=== PATIENT | male | born 1995 | race Caucasian/White ===

== ENCOUNTER 2022-09-21 15:55 | Emergency (ER) | payer BC, SELFPAY ==
[2022-09-21 16:07] VITALS: BP 136/76; PULSE 76; RESP 16; TEMP 36.9; O2SAT 99
[2022-09-21 16:31] VITALS: BP 136/76; PULSE 76; RESP 16; TEMP 36.9; O2SAT 99
--- NOTE | 2022-09-21 16:35 | ED.URI ---
HPI - URI/Sore Throat General Chief Complaint: Upper Respiratory Infection Stated Complaint: cough of phlem Time Seen by Provider: 09/21/22 16:19 Source: patient Mode of arrival: ambulatory Limitations: no limitations History of Present Illness HPI Narrative: Patient presents today with a 10-14 day history of productive cough with yellow sputum, that is worse in the morning and at night. Denies any additional symptoms to include shortness of breath, congestion, rhinorrhea. He took 1 dose of Sudafed during the length of his cough without relief. He has been having difficulty sleeping due to cough. Related Data Allergies Allergy/AdvReac Type Severity Reaction Status Date / Time Sulfa (Sulfonamide Allergy Severe Swelling Verified 09/21/22 16:29 Antibiotics) of Lip/Tongue/Throat Review of Systems Review of Systems: CONSTITUTIONAL: Denies body aches, fever, chills, or sweats. EYES: Denies visual changes, redness, or discharge. ENT: Denies rhinorrhea, congestion, sore throat, or otalgia. CARDIOVASCULAR: Denies chest pain, palpitations, or edema. RESPIRATORY: Denies dyspnea.+ Cough GASTROINTESTINAL: Denies abdominal pain, nausea, vomiting, or diarrhea. GENITOURINARY: Denies dysuria or hematuria. SKIN: Denies rash, itching, or wounds. MUSCULOSKELETAL: Denies back pain, joint pain, or myalgia. NEUROLOGIC: Denies headache, numbness, tingling, or weakness. PSYCH: Denies depression or anxiety. [facility] Social History Social History (Updated 09/21/22 @ 16:37 by Rebeka Cortes, [facility], ) Smoking status: Current every day smoker Tobacco type: e-cigarettes/vaping Alcohol intake: current Comments At time of signature, I have reviewed and agree with nursing past medical, surgical, social and family history unless otherwise noted. Please see nursing chart for further information. There is no relevant family history pertinent to the presenting complaint Exam Narrative: GENERAL: Well-appearing, well-nourished, and in no acute distress. HEAD: Normocephalic, atraumatic. EYES: EOMI. No redness or drainage. Conjunctivae normal. ENT: Mucous membranes pink and moist. Nares mildly congested. No rhinorrhea. TMs normal bilaterally. Throat normal. Uvula midline. NECK: Normal AROM. Supple. No lymphadenopathy. CHEST: No respiratory distress. Clear to auscultation. HEART: Regular rate and rhythm. No murmur appreciated. Normal peripheral pulses. EXTREMITIES: Normal range of motion. No edema. SKIN: Warm, dry, no rash. Capillary refill normal. Normal skin turgor. NEURO: No focal deficits. Alert and oriented x3. Gait steady. PSYCH: Normal affect. No signs of depression or anxiety. Course Course Level of Care: Express Care Visit Vital Signs Vital signs: Vital Signs Temperature 98.5 F 09/21/22 16:07 Pulse Rate 76 09/21/22 16:07 Respiratory Rate 16 09/21/22 16:07 Blood Pressure 136/76 09/21/22 16:07 Pulse Oximetry 99 09/21/22 16:07 Oxygen Delivery Room Air 09/21/22 16:07 Temperature 98.5 F 09/21/22 16:31 Pulse Rate 76 09/21/22 16:31 Respiratory Rate 16 09/21/22 16:31 Blood Pressure 136/76 09/21/22 16:31 Pulse Oximetry 99 09/21/22 16:31 Oxygen Delivery Room Air 09/21/22 16:31 Reviewed. Pt has been instructed to follow up with his PCP regarding his elevated blood pressure today. MDM - URI/Sore Throat Differential Diagnosis Differential diagnosis: Likely upper respiratory infection, sinusitis, viral infection and other ( Bronchitis) Critical Care Time Critical Care Time Critical Care Time: No Discharge Plan Discharge Clinical Impression: Bronchitis Sinusitis Qualifiers: Sinusitis location: unspecified location Chronicity: acute Recurrence: non-recurrent Qualified Code(s): J01.90 - Acute sinusitis, unspecified Patient Disposition: Home, Self-Care Condition: Stable Instructions: Antibiotic Form, Sinusitis (ED), Acute Bronchitis (ED) Additional
== END 2022-09-21 16:48 | disposition home or self-care (01) ==
PROVIDERS: Emergency Provider Nurse Practitioner
DX: J40 Bronchitis, not specified as acute or chronic (principal); J01.90 Acute sinusitis, unspecified; F17.290 Nicotine dependence, other tobacco product, uncomplicated
CPT/HCPCS: 99213; G0463

== ENCOUNTER 2022-09-27 14:42 | Outpatient (CLI) | payer BC, SELFPAY ==
[2022-09-27 19:46] LABS: Alanine Aminotransferase 21 U/L (6-50); Albumin Level 4.7 g/dL (3.5-5.1); Alkaline Phosphatase 71 U/L (38-126); Anion Gap 12 mmol/L (8-16); Aspartate Amino Transferase 20 U/L (17-59); Bilirubin,Total 0.4 mg/dL (0.2-1.3); Blood Urea Nitrogen 13 mg/dL (9-20); Calcium 9.1 mg/dL (8.4-10.2); Carbon Dioxide 27 mmol/L (22-30); Chloride 102 mmol/L (98-107); Cholesterol 162 mg/dL (0-200); Estimated Glomerular Filt Rate > 60; Glucose 94 mg/dL (65-110); HDL Direct 40 mg/dL; Sodium 141 mmol/L (137-145); Triglycerides 98 mg/dL (<150)
[2022-09-27 19:58] LABS: LDL Cholesterol Direct 95 mg/dL
== END 2022-09-27 14:43 | disposition home or self-care (01) ==
LOC: ANHGOSHLAB 14:45
PROVIDERS: PCP Family Medicine; Visit Provider Family Medicine
DX: Z13.228 Encounter for screening for other metabolic disorders (principal); Z13.220 Encounter for screening for lipoid disorders
CPT/HCPCS: 36415; 80053; 80061

== ENCOUNTER 2023-12-12 11:36 | Emergency (ER) | payer OTHER, SELFPAY ==
--- NOTE | 2023-12-12 11:47 | ED.GENADULT ---
HPI - General Adult General Chief complaint: Upper Respiratory Infection Stated complaint: Right Eye/ Sinus Source: patient, RN notes reviewed and old records reviewed Mode of arrival: ambulatory Limitations: no limitations History of Present Illness HPI narrative: 28-year-old male patient presents to [facility] with complaint of sinus congestion, sinus pressure, cough for 3 months. Patient states did a virtual visit and was told to take [id number] medications. Patient states it is not improving. Patient states has thick green nasal discharge. Patient also complaining right eye redness, irritation, swelling that started yesterday. Patient states things got salt in his eye. Patient denies injury. Patient does wear contact lenses Related Data Allergies Allergy/AdvReac Type Severity Reaction Status Date / Time Sulfa (Sulfonamide Allergy Severe Swelling Verified 12/12/23 11:47 Antibiotics) of Lip/Tongue/Throat Review of Systems Constitutional: Constitutional: Reports no additional constitutional complaints, Denies body ache(s), Denies chills, Denies fatigue, Denies fever(s) and Reports headache(s) Eyes: Eyes: Denies blind spots, Denies blurry vision, Denies exophthalmos, Denies change in vision, Reports eye discharge, Reports irritation, Reports eye pain and Reports requires corrective lenses ENT: Reports system reviewed and no additional complaints, except as documented, Denies vertigo, Denies dizziness, Denies ear discharge, Denies otalgia, Reports facial pain, Reports headache(s), Reports nasal congestion, Reports nasal discharge, Reports sinus pain, Reports sinus pressure and Denies sore throat Cardiovascular: Cardiovascular: Reports no additional cardiovascular complaints, Denies chest pain, Denies chest pain at rest, Denies rapid heart rate and Denies dyspnea Respiratory: Respiratory: Reports no additional respiratory complaints, Denies chest congestion, Reports cough, Denies pain on inspiration, Denies pain with cough and Denies dyspnea Gastrointestinal: Gastrointestinal: Denies abdominal pain, Denies diarrhea, Denies nausea and Denies vomiting Integumentary/Breasts: Skin/Breast: Denies rash Neurologic: Reports system reviewed and no additional complaints, except as documented, Denies vertigo, Denies dizziness and Denies headache(s) Endocrine: Endocrine: Denies fatigue PMFSH Past Medical History Medical History ADHD Surgical History Surgical History History of appendectomy Social History Social History Smoking status: Current some day smoker (Vapes) Tobacco type: e-cigarettes/vaping Alcohol intake: current Drinks per week: 30 Substance use: never Lack of Transportation: No Lack of Food: Never True Current Housing: I Have Housing Concerned About Future Housing: No Difficulty Paying Gas/Electric Bills: No Difficulty Paying for Meds: No Currently Unemployed: No Education: Trade/Vocational Certificate Difficulty w/ Childcare or Family Care: No Comments At the time of my signature, I reviewed and agree with the nursing past medical, surgical, social, and family history. There is no relevant family history pertinent to the patient complaint. Exam Const: General: cooperative, healthy appearing, no acute distress and well nourished Nutritional Appearance: well nourished Orientation/consciousness: patient oriented x3 Limitations: no limitations HENMT: Head: normal to inspection and normocephalic Ears: external ears normal, TM's normal bilaterally, mastoids normal and Abnormal EAC present Face/Nose/Sinus: Normal nasal mucous membranes and turbinates present and Facial tenderness on exam of face and sinuses Face and sinus: normal facial exam and sinus tenderness maxillary Mouth: Yes Normal oral and palatal
[2023-12-12 11:55] VITALS: BP 125/83; PULSE 94; RESP 20; TEMP 36.9; O2SAT 99
== END 2023-12-12 12:20 | disposition home or self-care (01) ==
PROVIDERS: Emergency Provider Registered Nurse; PCP Family Medicine
DX: J01.90 Acute sinusitis, unspecified (principal); S05.01XA Injury of conjunctiva and corneal abrasion without foreign body, right eye, initial encounter; X58.XXXA Exposure to other specified factors, initial encounter; F17.290 Nicotine dependence, other tobacco product, uncomplicated
CPT/HCPCS: 99213; A9270; G0463

== ENCOUNTER 2024-07-09 12:37 | Outpatient (CLI) | payer OTHER, SELFPAY ==
[2024-07-09 13:36] LABS: Basophils Absolute Auto 0.1 K/mm3 (0.0-0.1); Basophils Percent Auto 0.8 % (0.2-1.2); Eosinophils Absolute Auto 0.5 K/mm3 (0-0.3); Eosinophils Percent Auto 6.4 % (0-4.4); Hematocrit 44.8 % (42.0-52.0); Hemoglobin 15.7 g/dL (14.0-18.0); Immature Granulocyte Absolute 0.02 K/mm3 (0.00-0.031); Immature Granulocyte Percent A 0.3 % (0-0.5); Lymphocytes Absolute Auto 2.47 K/mm3 (0.9-3.2); Lymphocytes Percent Auto 34.1 % (18.3-44.2); Mean Corpuscular Hemoglobin 30.5 pg (26-34); Mean Corpuscular Volume 87.2 fl (80-100); Mean Platelet Volume 10.2 fl (7.4-10.4); Monocytes Absolute Auto 0.8 K/mm3 (0.1-0.6); Monocytes Percent Auto 11.6 % (2.6-8.5); Neutrophils Absolute Auto 3.4 K/mm3 (1.3-6.7); Neutrophils Percent Auto 46.8 % (45.5-73.1); Platelet Count Result 274 k/mm3 (150-375); Red Blood Count 5.14 M/mm3 (4.6-6.20); Red Cell Distribution Width 12.5 % (11.5-14.5); White Blood Count 7.2 K/mm3 (4.5-10.0)
[2024-07-09 14:30] LABS: Alanine Aminotransferase 46 U/L (6-50); Albumin Level 4.5 g/dL (3.5-5.1); Alkaline Phosphatase 80 U/L (38-126); Anion Gap 9 mmol/L (4-12); Aspartate Amino Transferase 59 U/L (17-59); Bilirubin,Total 0.9 mg/dL (0.2-1.3); Blood Urea Nitrogen 13 mg/dL (9-20); Calcium 9.2 mg/dL (8.4-10.2); Carbon Dioxide 29 mmol/L (22-30); Chloride 99 mmol/L (98-107); Estimated Glomerular Filt Rate > 60; Glucose 96 mg/dL (65-110); Potassium 4.3 mmol/L (3.4-5.0); Sodium 137 mmol/L (137-145)
== END 2024-07-09 12:38 | disposition home or self-care (01) ==
LOC: ANHGOSHLAB 12:45
PROVIDERS: PCP Family Medicine; Visit Provider Family Medicine
DX: R53.83 Other fatigue (principal); Z13.228 Encounter for screening for other metabolic disorders
CPT/HCPCS: 36415; 80053; 85025

== ENCOUNTER 2024-07-09 12:53 | Outpatient (CLI) | payer OTHER, SELFPAY ==
--- NOTE | ~2024-07-09 | XR_ITS ---
XR lumbar spine min 4V 07/09/2024 13:08 Indication: Low back pain Procedure: 5 views lumbar spine Comparison: No prior studies for comparison. Findings: No fracture, subluxation or dislocation. Vertebral body heights are maintained. There is di sc narrowing at L5-S1. No evidence for spondylolisthesis. Sacral foramen are symmetric. Pedicles inta ct. Impression: 1: Mild lumbar spondylosis. Reviewed, dictated and finalized at location B. Impression: 1: Mild lumbar spondylosis.
== END 2024-07-09 12:54 ==
LOC: GOSHIMG 12:54
PROVIDERS: PCP Family Medicine; Visit Provider Family Medicine
DX: M47.896 Other spondylosis, lumbar region (principal)
CPT/HCPCS: 72110

== ENCOUNTER 2025-03-10 10:18 | Emergency (ER) | payer BC, SELFPAY ==
--- NOTE | 2025-03-10 10:28 | ED_ITS ---
HPI - General Adult General Chief complaint: Unspecified Stated complaint: Vomiting Blood/Chest Wall Pain Time Seen by Provider: 03/10/25 10:22 Source: patient Mode of arrival: ambulatory Limitations: no limitations History of Present Illness HPI narrative: 29 yo M presents with c/o SOB since yesterday. Today began nausea suddenly while having a BM. vomited once and states blood streaked . Went to work and noticed he is having chest pressure to center of chest with upper ABD pain. continues to have SOB with exertion. became sweaty and weak while at work. No URI symptoms. All systems reviewed and negative except as noted above. Related Data Allergies Allergy/AdvReac Type Severity Reaction Status Date / Time Sulfa (Sulfonamide Allergy Severe Swelling Verified 03/10/25 10:29 Antibiotics) of Lip/Tongue/Throat Review of Systems Review of Systems: CONSTITUTIONAL: Denies fever, chills. Reports sweats. EYES: Denies visual changes, redness, or discharge. ENT: Denies rhinorrhea, congestion, sore throat, or otalgia. CARDIOVASCULAR: reports chest pressure. Denies palpitations, or edema. RESPIRATORY: denies cough. Reports dyspnea. GASTROINTESTINAL: reports abdominal pain, nausea, vomiting. Denies diarrhea. GENITOURINARY: Denies dysuria or hematuria. SKIN: Denies rash or itching. MUSCULOSKELETAL: Denies back pain, joint pain, or myalgia. NEUROLOGIC: Denies headache, numbness, or weakness. PSYCHIATRIC: Denies anxiety or depression. All other systems reviewed are negative, except as documented in HPI. [facility] Past Medical History Medical History ADHD Surgical History Surgical History History of appendectomy Social History Social History Smoking status: Current some day smoker (Vapes) Tobacco type: e-cigarettes/vaping Alcohol intake: current Drinks per week: 30 Substance use: never Lack of Transportation: No Lack of Food: Never True Current Housing: I Have Housing Concerned About Future Housing: No Difficulty Paying Gas/Electric Bills: No Difficulty Paying for Meds: No Currently Unemployed: No Education: Trade/Vocational Certificate Difficulty w/ Childcare or Family Care: No Comments At time of signature, agree with nursing past medical, surgical, social and family history. There is no relevant family history pertinent to the presenting complaint. Exam Narrative: GENERAL: This is a well-nourished, well-developed patient, patient is pale HEAD: normocephalic, atraumatic. EYES: PERRL. Sclera clear/white. Vision is grossly intact. EARS: External ears normal NOSE: External nose normal NECK: Neck supple, non-tender without lymphadenopathy, masses or thyromegaly. CARDIOVASCULAR: Regular rate and rhythm without murmurs, gallops, or rubs. RESPIRATORY: Clear to auscultation. Breath sounds equal bilaterally. No wheezes, rales, or rhonchi. GASTROINTESTINAL: Abdomen soft,tender right upper quadrant and epigastric, nondistended. Bowel sounds are active. No hepato-splenomegaly, or palpable masses. No guarding. SKIN: warm, Dry, intact with no suspicious lesions or rash, good texture and turgor. NEURO: awake, alert, and oriented to person, place and time. There were no obvious focal neurologic abnormalities. EXTREMITIES: No joint tenderness, effusion, or edema noted. Course Course Level of Care: Express Care Visit Vital Signs Vital signs: Vital Signs Temperature 36.4 C L 03/10/25 10:29 Pulse Rate 74 03/10/25 10:29 Respiratory Rate 16 03/10/25 10:29 Blood Pressure 121/75 03/10/25 10:29 Pulse Oximetry 98 03/10/25 10:29 Oxygen Delivery Room Air 03/10/25 10:29 Temperature 36.4 C L 03/10/25 10:29 Pulse Rate 74 03/10/25 10:29 Respiratory Rate 16 03/10/25 10:29 Blood Pressure 121/75 03/10/25 10:29 Pulse Oximetry 98 03/10/25 10:29 Oxygen Delivery Room Air 03/10/25 10:29 reviewed Transfer Transfered to: [place] Transportation: Other ( private vehicle) Transfer rationale: transferring patient to ER for further evaluation chest pressure, dyspnea, epigastric pain. Accepting physician: Dr. Teresa Medical Decision Making MDM Narrative Medical decision making narrative: EKG HR68, no ischemic changes, incomplete RBBB, left posterior fascicular block Please be advised this is a medical document. It is intended for [id number] communication. It is written in medical language and may contain unfamiliar abbreviations or verbiage. Medical documents are intended to carry relevant information, facts as evident, and the clinical opinion of the practitioner at the time of the encounter. This report may have been done utilizing a voice recognition system. Attempts have been made to correct errors. However, there may be uncorrected grammatical, spelling, and recognition errors present. The file time of this note does not n ecessarily represent the time of service. Vital Signs Vital Signs: Vital Signs Temperature 36.4 C L 03/10/25 10:29 Pulse Rate 74 03/10/25 10:29 Respiratory Rate 16 03/10/25 10:29 Blood Pressure 121/75 03/10/25 10:29 Pulse Oximetry 98 03/10/25 10:29 Oxygen Delivery Room Air 03/10/25 10:29 Temperature 36.4 C L 03/10/25 10:29 Pulse Rate 74 03/10/25 10:29 Respiratory Rate 16 03/10/25 10:29 Blood Pressure 121/75 03/10/25 10:29 Pulse Oximetry 98 03/10/25 10:29 Oxygen Delivery Room Air 03/10/25 10:29 Discharge Plan Discharge Clinical Impression: Chest pain, Acute dyspnea, Acute epigastric pain Patient Disposition: Acute Care Hospital Condition: Stable Patient Language: Arabic Prescriptions: No Action meloxicam 15 mg tablet 15 mg PO DAILY Qty: 90 1RF escitalopram oxalate 10 mg tablet 10 mg PO DAILY Qty: 90 1RF dextroamphetamine-amphetamine [Adderall XR] 25 mg capsule,extended release 24hr 25 mg PO DAILY Qty: 30 0RF cyclobenzaprine 10 mg tablet 10 mg PO TID PRN (Reason: muscle spasm) Qty: 30 0RF Follow-up/Referrals: Teo,Matias Harrell DO [Primary Care Provider] - Time of Disposition: 10:43
[2025-03-10 10:29] VITALS: BP 121/75; PULSE 74; RESP 16; TEMP 36.4; O2SAT 98
--- NOTE | 2025-03-10 10:33 | ECG_ITS ---
Test Date: 2025-03-10 10:44:36 Measurements Intervals [place] Rate: 68 P: 145 ID: 148 QRS: 145 QRSD: 96 T: 146 QT: 364 QTc: 387 Interpretive Statements SINUS RHYTHM POSSIBLE LEFT ATRIAL ENLARGEMENT INCOMPLETE RIGHT BUNDLE BRANCH BLOCK LEFT POSTERIOR FASCICULAR BLOCK BORDERLINE T WAVE ABNORMALITY- HIGH LATERAL LEADS BASELINE ARTIFACT- I, II, III, AVR, AVL, AVF ABNORMAL ECG No previous ECG available for comparison Electronically Signed On 03-10-2025 10:42:23 CDT by Luis Enrique Eng D.O.
== END 2025-03-10 10:52 | disposition short-term general hospital (02) ==
PROVIDERS: Emergency Provider Nurse Practitioner Family; PCP Family Medicine
DX: R07.9 Chest pain, unspecified (principal); R06.00 Dyspnea, unspecified; R10.13 Epigastric pain; I45.10 Unspecified right bundle-branch block; I44.5 Left posterior fascicular block; F90.9 Attention-deficit hyperactivity disorder, unspecified type; F17.290 Nicotine dependence, other tobacco product, uncomplicated
CPT/HCPCS: 93005; 99213; G0463

== ENCOUNTER 2025-03-10 11:06 | Emergency (ER) | payer BC, SELFPAY ==
--- NOTE | ~2025-03-10 | CT_ITS ---
EXAMINATION: CT abdomen pelvis w con DATE: 03/10/2025 12:49 INDICATION: Abdominal pain and blood streaked vomiting TECHNIQUE: Computed tomography (CT) of the abdomen and pelvis was performed with 100 mL Omnipaque-350 intravenous contrast. Automated exposure control and iterative reconstruction technique were employe d. The dose-length product was 739.94 mGy-cm. COMPARISON: None FINDINGS: Lung bases are clear. Heart size is normal. No pericardial or pleural effusion. Liver, gallbladder, s pleen, pancreas, bilateral adrenal glands and kidneys are normal. Postoperative change of prior appen dectomy with surgical clips at the tip the cecum. Bowels are otherwise unremarkable with no obstructi on. Bladder is normal. No free intraperitoneal gas or fluid. No pathologically enlarged abdominal or pelvic lymphadenopathy. Bilateral hypoplastic riblets at L1 with 12 more cephalad paired rib bearing thoracic vertebra on chest radiograph. 4 more caudal nonrib-bearing lumbar segments L2-L5. IMPRESSION: 1. No acute intra-abdominal/pelvic process. Reviewed, dictated and finalized at location A.
--- NOTE | ~2025-03-10 | XR_ITS ---
Clinical Indication: Hemoptysis PA and lateral views of the chest: Comparison: Pain none Findings: The lungs are clear, without evidence of focal consolidation or pleural effusion. Cardiome diastinal silhouette is within normal limits. Bones and soft tissues are unremarkable. Impression: Normal chest. Reviewed, dictated and finalized at [facility]. Impression: Normal chest.
[2025-03-10 11:11] VITALS: BP 134/92; PULSE 75; RESP 13; TEMP 36.4; O2SAT 98
--- NOTE | 2025-03-10 11:11 | ECG_ITS ---
Test Date: 2025-03-10 10:42:46 Measurements Intervals [place] Rate: 72 P: 143 SC: 152 QRS: 146 QRSD: 94 T: 134 QT: 357 QTc: 392 Interpretive Statements SINUS RHYTHM POSSIBLE LEFT ATRIAL ENLARGEMENT INCOMPLETE RIGHT BUNDLE BRANCH BLOCK LEFT POSTERIOR FASCICULAR BLOCK BORDERLINE T WAVE ABNORMALITY- HIGH LATERAL LEADS ABNORMAL ECG No previous ECG available for comparison Electronically Signed On 03-10-2025 11:39:22 CDT by Luis Enrique Eng D.O.
--- NOTE | 2025-03-10 11:22 | ECG_ITS ---
Test Date: 2025-03-10 11:22:27 Measurements Intervals [place] Rate: 74 P: 47 UT: 154 QRS: 70 QRSD: 93 T: 30 QT: 368 QTc: 410 Interpretive Statements SINUS RHYTHM WITH SINUS ARRHYTHMIA MINIMAL Q WAVES- INFERIOR LEADS BASELINE ARTIFACT- I, III, AVR, AVL, AVF BORDERLINE ECG Compared to ECG 03/10/2025 10:44:36 NO SIGNIFICANT CHANGE Electronically Signed On 03-10-2025 14:45:09 CDT by Luis Enrique Eng D.O.
[2025-03-10] MEDS: ASPIRIN 81 MG CHEWABLE TABLET 324 MG PO (11:23)
[2025-03-10 11:28] LABS: Basophils Absolute Auto 0.1 K/mm3 (0.0-0.1); Basophils Percent Auto 0.7 % (0.2-1.2); Eosinophils Absolute Auto 0.4 K/mm3 (0-0.3); Eosinophils Percent Auto 5.9 % (0-4.4); Hematocrit 44.2 % (42.0-52.0); Hemoglobin 15.5 g/dL (14.0-18.0); Immature Granulocyte Absolute 0.03 K/mm3 (0.00-0.031); Immature Granulocyte Percent A 0.4 % (0-0.5); Lymphocytes Absolute Auto 2.16 K/mm3 (0.9-3.2); Lymphocytes Percent Auto 31.9 % (18.3-44.2); Mean Corpuscular HGB Conc 35.1 g/dl (32-36); Mean Corpuscular Hemoglobin 29.6 pg (26-34); Mean Corpuscular Volume 84.5 fl (80-100); Monocytes Absolute Auto 0.9 K/mm3 (0.1-0.6); Monocytes Percent Auto 13.4 % (2.6-8.5); Neutrophils Absolute Auto 3.2 K/mm3 (1.3-6.7); Neutrophils Percent Auto 47.7 % (45.5-73.1); Platelet Count Result 266 k/mm3 (150-375); Red Blood Count 5.23 M/mm3 (4.6-6.20); Red Cell Distribution Width 12.7 % (11.5-14.5); White Blood Count 6.8 K/mm3 (4.5-10.0)
[2025-03-10 11:40] LABS: Alanine Aminotransferase 34 U/L (6-50); Albumin Level 4.8 g/dL (3.5-5.1); Alkaline Phosphatase 85 U/L (38-126); Anion Gap 11 mmol/L (4-12); Aspartate Amino Transferase 31 U/L (17-59); Bilirubin,Total 0.7 mg/dL (0.2-1.3); Blood Urea Nitrogen 17 mg/dL (9-20); Carbon Dioxide 26 mmol/L (22-30); Chloride 102 mmol/L (98-107); Estimated CRCL calculation 102 ml/min; Estimated Glomerular Filt Rate > 60; Glucose 102 mg/dL (65-110); Lipase 84 U/L (23-300); Potassium 4.2 mmol/L (3.4-5.0); Sodium 139 mmol/L (137-145)
[2025-03-10 11:44] LABS: INR 0.9; Prothrombin Time 13.1 Seconds (11.1-14.7)
[2025-03-10 11:45] LABS: Partial Thromboplastin Time 32.4 Seconds (22.3-36.8)
[2025-03-10 11:52] LABS: Troponin I < 0.012 ng/mL (0.000-0.034)
--- NOTE | 2025-03-10 12:57 | ED_ITS ---
HPI - Chest Pain General Chief Complaint: Chest Pain Stated Complaint: CP Time Seen by Provider: 03/10/25 12:02 History of Present Illness HPI narrative: 29-year-old male with history of reflux disease presenting to the emergency room with chief complaint of epigastric abdominal pain, radiating into his chest associated with GERD like symptoms. He states he felt nauseous and retching several times at work followed by 1 episode of emesis with streaking blood. No continued retching or nausea/vomiting. No history of gastritis, esophagitis, peptic ulcer disease to his knowledge. Does not drink significantly but does have a strong smoking history. He states he has been feeling occasionally short of breath after smoking. Denies any trauma or injury. No history of EGD or endoscopy. He was otherwise in his normal state of health. Denies any dark tarry stools or blood red blood per rectum. No lower abdominal pain. Abdominal surgical history includes appendectomy. Related Data Allergies Allergy/AdvReac Type Severity Reaction Status Date / Time Sulfa (Sulfonamide Allergy Severe Swelling Verified 03/10/25 11:20 Antibiotics) of Lip/Tongue/Throat Review of Systems 2 Review of Systems: As reviewed above in HPI [facility] Past Medical History Medical History ADHD Surgical History Surgical History History of appendectomy Social History Social History Smoking status: Current some day smoker (Vapes) Tobacco type: e-cigarettes/vaping Alcohol intake: current Drinks per week: 30 Substance use: never Lack of Transportation: No Lack of Food: Never True Current Housing: I Have Housing Concerned About Future Housing: No Difficulty Paying Gas/Electric Bills: No Difficulty Paying for Meds: No Currently Unemployed: No Education: Trade/Vocational Certificate Difficulty w/ Childcare or Family Care: No Exam 2 Narrative: GENERAL: [Well-appearing, well-nourished, and in no acute distress.] HEAD: [Normocephalic, atraumatic.] EYES: [PERRLA and EOMI.] ENT: Nares clear, no rhinorrhea or epistaxis. Mucous membranes moist. NECK: Supple. CHEST: [Clear to auscultation. No respiratory distress.] HEART: [Regular rate and rhythm]. No murmur heard. [Normal peripheral pulses.] ABDOMEN: [Soft, nondistended], [nontender], [No rigidity or guarding] EXTREMITIES: Normal range of motion. [No edema.] SKIN: Warm, dry, no rash. NEURO: [No focal deficits]. Alert and oriented [x3.] PSYCH: [Normal mood and affect.] Course Vital Signs Vital signs: Vital Signs Temperature 36.4 C 03/10/25 11:11 Pulse Rate 75 03/10/25 11:11 Respiratory Rate 13 03/10/25 11:11 Blood Pressure 134/92 H 03/10/25 11:11 Pulse Oximetry 98 03/10/25 11:11 Oxygen Delivery Room Air 03/10/25 11:11 Temperature 36.4 C 03/10/25 11:11 Pulse Rate 75 03/10/25 11:11 Respiratory Rate 13 03/10/25 11:11 Blood Pressure 134/92 H 03/10/25 11:11 Pulse Oximetry 98 03/10/25 11:11 Oxygen Delivery Room Air 03/10/25 11:11 MDM - Chest Pain MDM Narrative Medical decision making narrative: 29-year-old male presenting with epigastric abdominal pain radiating into his chest associated grade leg symptoms. He states he had been retching in nauseousness at work today several times followed by 1 episode of blood-streaked emesis without any recurrence. No upper chest discomfort or shortness of breath at this time. He has normal vital signs and unremarkable physical examination with clear breath sounds, strong symmetric pulses throughout, nontender nondistended abdomen. Suspicion presently given his history of reflux disease that he states has been dealing with for ?some time? is that he had potentially some erosive process such as gastritis versus esophagitis versus Jessi-Yip tear causing his brief blood-streaked emesis. Peptic ulcer disease or antral ulcer also possible. He has a soft nontender abdomen with normal vital signs. Suspicion for chest pathology such as pneumonia, necrotizing mass, lung cancer, esophageal cancer, ACS or very unlikely. Cardiac workup was ordered including CBC, CMP, lipase, troponin, EKG and chest x-ray. A CT abdomen pelvis with contrast was obtained and he was given Pepcid and Maalox for symptom control and re-evaluated after being placed on cafeteria monitor. Workup shows no leukocytosis or anemia. Normal platelet count. Normal coagulation panel. Normal electrolytes, normal renal and hepatic function panel. Normal glucose. Negative lipase, negative troponin. Chest x-ray without any acute findings. CT shows no acute intra-abdominal or pelvic process. Patient is safe and stable for discharge home at this time will be started on Protonix and encouraged to follow-up with his primary care provider and referred to GI doctor. Patient's questions were answered he was safe for discharge at this time. Medical Records Data Attestation: I reviewed the patient's medical records. Lab Data Attestation: I reviewed the patient's lab results. 03/10/25 11:22 03/10/25 11:22 Labs: Lab Results 03/10/25 Range/Units 11:22 WBC 6.8 (4.5-10.0) K/mm3 RBC 5.23 (4.6-6.20) M/mm3 Hgb 15.5 (14.0-18.0) g/dL Hct 44.2 (42.0-52.0) % MCV 84.5 (80-100) fl MCH 29.6 (26-34) pg MCHC 35.1 (32-36) g/dl RDW 12.7 (11.5-14.5) % Plt Count 266 (150-375) k/mm3 MPV 10.0 (7.4-10.4) fl Immature Gran % (Auto) 0.4 (0-0.5) % Neut % (Auto) 47.7 (45.5-73.1) % Lymph % (Auto) 31.9 (18.3-44.2) % Wilcox % (Auto) 13.4 H (2.6-8.5) % Eos % (Auto) 5.9 H (0-4.4) % Baso % (Auto) 0.7 (0.2-1.2) % Lymph # (Auto) 2.16 (0.9-3.2) K/mm3 Wilcox # (Auto) 0.9 H (0.1-0.6) K/mm3 Eos # (Auto) 0.4 H (0-0.3) K/mm3 Baso # (Auto) 0.1 (0.0-0.1) K/mm3 Abs Immat Gran (auto) 0.03 (0.00-0.031) K/mm3 Absolute Neuts (auto) 3.2 (1.3-6.7) K/mm3 Absolute Nucleated RBC 0.000 (0.0-0.012) K/mm3 Nucleated RBC % 0.0 (0.0-0.2) % PT 13.1 (11.1-14.7) Seconds INR 0.9 APTT 32.4 (22.3-36.8) Seconds Sodium 139 (137-145) mmol/L Potassium 4.2 (3.4-5.0) mmol/L Chloride 102 (98-107) mmol/L Carbon Dioxide 26 (22-30) mmol/L Anion Gap 11 (4-12) mmol/L BUN 17 (9-20) mg/dL Creatinine 1.12 (0.7-1.3) mg/dL Estim Creat Clear Calc 102 ml/min Estimated GFR > 60 (59 - ) Glucose 102 (65-110) mg/dL Calcium 9.0 (8.4-10.2) mg/dL Total Bilirubin 0.7 (0.2-1.3) mg/dL AST 31 (17-59) U/L ALT 34 (6-50) U/L Alkaline Phosphatase 85 (38-126) U/L Troponin I < 0.012 (0.000-0.034) ng/mL Total Protein 8.0 (6.3-8.2) g/dL Albumin 4.8 (3.5-5.1) g/dL Lipase 84 (23-300) U/L Imaging Data Attestation: I personally reviewed and interpreted this imaging study as follows: My impression: Impressions Chest X-Ray 03/10/25 11:49 Impression: Normal chest. Abdomen/Pelvis CT 03/10/25 12:50 IMPRESSION: 1. No acute intra-abdominal/pelvic process. ECG Data EKG #1: Attestation: I personally reviewed and interpreted this ECG as follows: ECG completion date: 03/10/25 ECG completion time: 10:42 Prior ECG tracings: not available for review Interpretation: No ST segment elevations, depressions. Appears sinus rhythm with a QTC of 392, NJ interval 152, QRS 94. No significant interval change compared to prior. Final interpretation sinus rhythm. Discharge Plan Discharge Clinical Impression: Acid reflux disease, Chest pain, Chest pain due to GERD Patient Disposition: Home Condition: Stable Instructions: Antibiotic Form, Gastritis (DC), GERD (Gastroesophageal Reflux Disease) in Children (ED), Diet for Stomach Ulcers and Gastritis (ED) Additional Instructions: Your cardiac workup was negative, your CT scan shows no acute abnormalities. Her symptoms very consistent with longstanding GERD causing the reflux symptoms and burning with chest pain. We will start you on Protonix and you are encouraged to follow-up with primary care provider but we will also refer you to a GI specialist further evaluation on outpatient basis nonemergent. Return with any new or worsening concerns at any time. Patient Language: Greek Prescriptions: New pantoprazole [Protonix] 20 mg tablet,delayed release (DR/EC) 20 mg PO HS 28 Days Qty: 28 0RF ondansetron 4 mg tablet,disintegrating 4 mg PO Q8H PRN (Reason: nausea and vomiting) Qty: 10 0RF No Action meloxicam 15 mg tablet 15 mg PO DAILY Qty: 90 1RF escitalopram oxalate 10 mg tablet 10 mg PO DAILY Qty: 90 1RF dextroamphetamine-amphetamine [Adderall XR] 25 mg capsule,extended release 24hr 25 mg PO DAILY Qty: 30 0RF cyclobenzaprine 10 mg tablet 10 mg PO TID PRN (Reason: muscle spasm) Qty: 30 0RF Follow-up/Referrals: Eros Macario MD [Physician] - 2 Weeks (reflux, chest pain, Jessi paige?) UNKNOWN,DOCTOR [Primary Care Provider] - Time of Disposition: 13:32
--- OUTSIDE RECORDS SUMMARY | 2025-03-10 13:01 | XMS_ITS | Clinical Summary ---
Author Organization [facility] Address [address] [place] [address] Care Team Providers Care Second Steward Name Role Phone Unavailable Primary Care Provider Unavailabl e Social History Tobacco Use Types Packs/Day Years Used Date Smoking Tobacco: Never Assessed Sex and Gender Information Value Date Recorded Sex Assigned at Not on file Legal Sex Male 12:27 PM CDT Gender Identity Not on file Sexual Orientation Not on file Plan of Treatment Upcoming Encounters Date Type Department Care Team (Late st Contact Info) Description 03/31/2025 9:40 AM CDT Office Visit [facility] Family Medicine - [place] [address] [facility] [address] [place] [phone] Carolina Leos MD [address] [place] [address] Health Maintenance Due Date Last Done Comments Annual Physical 1996 Hepatitis C 2011 DTaP, Tdap and Td Vaccines ( 1 - Tdap) 2012 Hepatitis B Vaccines (1 of 3 - 19+ 3-dose series) 2012 COVID-19 Vaccine ( - 2023-2 5 season) 2024 PHQ-2 (Physician [place]) 11/18/2024 HPV Vaccines Aged Out No longer eligi ble based on patient's age to complete this topic Meningococcal B Vaccine Aged Out No l onger eligible based on patient's age to complete this topic Meningococcal Vaccine Aged Out No tay kristine eligible based on patient's age to complete this topic Pneumococcal Vaccine: Pediat rics (0 to 5 Years) and At-Risk Patients (6 to 49 Years) Aged Out No longer eligible b ased on patient's age to complete this topic RSV Immunizations Under 20 Months Aged Out No longer eligible based on patient's age to complete this topic Insurance [facility]
[2025-03-10] MEDS: FAMOTIDINE 20 MG/2 ML VIAL IV PUSH (13:34)
[2025-03-10] MEDS: MAG HYDROX/AL HYDROX/SIMETH 30 ML UDC PO (13:34)
[2025-03-10 13:36] VITALS: BP 127/82; PULSE 60; RESP 13; TEMP 36.6; O2SAT 97
--- OUTSIDE RECORDS SUMMARY | 2025-03-10 14:00 | XMS_ITS | Clinical Summary ---
Author Organization [facility] Address [address] [place] [address] Care Team Providers Care Supervisor [place] Name Role Phone Unavailable Primary Care Provider [...] Description 03/31/2025 9:40 AM CDT Office Visit [facility] Family Medicine - [place] [address] [facility] [address] [place] [phone] Carolina Leos MD [address] [place] [address] Health Maintenance Due Date Last Done Comments Annual Physical 1996 Hepatitis C 2011 DTaP, Tdap and Td Vaccines ( 1 - Tdap) 2012 Hepatitis B Vaccines (1 of 3 - 19+ 3-dose series) 2012 COVID-19 Vaccine ( - 2023-2 5 season) 2024 PHQ-2 (Physician [place]) 11/18/2024 HPV Vaccines Aged Out No longer [...] patient's age to complete this topic Insurance [facility]
== END 2025-03-10 13:55 | disposition home or self-care (01) ==
PROVIDERS: Emergency Medicine; Emergency Provider Student in an Organized Health Care Education/Training Program
DX: K21.9 Gastro-esophageal reflux disease without esophagitis (principal); R07.89 Other chest pain; F90.9 Attention-deficit hyperactivity disorder, unspecified type
CPT/HCPCS: 36415; 71046; 74177; 80053; 83690; 84484; 85025; 85610; 85730; 93005; 96374; 99284; A9270; Q9967

== ENCOUNTER 2025-04-17 14:27 | Emergency (ER) | payer OTHER, SELFPAY ==
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
[2025-04-17 14:27] VITALS: BP 123/72; PULSE 89; RESP 20; TEMP 36.7; O2SAT 97
[2025-04-17] MEDS: KETOROLAC (*BKC) 60 MG/2 ML VIAL IM (15:14)
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
[2025-04-17 16:42] VITALS: BP 106/67; PULSE 80; RESP 20; TEMP 36.8; O2SAT 99
== END 2025-04-17 16:42 | disposition home or self-care (01) ==
PROVIDERS: Emergency Provider Emergency Medicine; PCP Internal Medicine
DX: S16.1XXA Strain of muscle, fascia and tendon at neck level, initial encounter (principal); F17.290 Nicotine dependence, other tobacco product, uncomplicated; V49.40XA Driver injured in collision with unspecified motor vehicles in traffic accident, initial encounter
CPT/HCPCS: 72125; 96372; 99284; J1885; L0150

== ENCOUNTER 2025-05-19 06:40 | Emergency (ER) | payer BC, SELFPAY ==
[2025-05-19 06:40] VITALS: O2SAT 99
[2025-05-19 06:43] VITALS: BP 121/78; PULSE 100; RESP 15; TEMP 37.6; O2SAT 98
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
--- OUTSIDE RECORDS SUMMARY | 2025-05-19 06:44 | XMS_ITS | Encounter Summary ---
Author Organization [facility] Address [facility] [place] [address] Care Team Providers Care Mill Laborer Name Role Phone Carolina Schuster MD Primary Care Provider + Reason for Visit * Reason Onset Date Comments Refill Request 05/18/2025 Encounter Details Date Type Department Care Team (Late st Contact Info) Description 05/18/2025 Telephone [facility] Medical Group Family Medicine [facility] [address] [facility] [address] [place] [phone] Carolina Schuster MD [address] [place] [phone] Refill Request Social History Tobacco Use Types Packs/Day Years Used Date Smoking Tobacco: Every Day Cigarettes 0.5 19.5 Started: 2005 Passive Smoke Exposure: Past Smokeless Tobacco: Never Alcohol Use Standard Drinks/Week Comments Yes 40 (1 standard drink = 0.6 oz pu re alcohol) socially PHQ-2 Answer Date Recorded Patient Health Questionnaire-2 Score 4 03/31/2025 Sex and Gender Information Value Date Recorded Sex Assigned at Not on file Legal Sex Male 12:27 PM CDT Gender Identity Not on file Sexual Orientation Not on file documented as of this encounter Progress Notes * Colleen Araiza MA - 05/18/2025 4:04 PM CDT Medication refill request for: Last visit with CAROLINA SCHUSTER in FAMILY PRACTICE was on: 03/31/[address] [facility] Next visit with CAROLINA SCHUSTER in FAMILY PRACTICE is on: 06/28/[address] [facility] Last fill: 03/31/25 CSA and UDS are up to date Medications - Current, Listed Continuously[1] [1] Current Outpatient Medications: amphetamine-dextroamphetamine XR (ADDERALL XR) 25 MG 24 hr capsule, Take 1 capsule (25 mg total) bymouth every morning., Disp: 30 capsule, Rfl: 0 escitalopram (LEXAPRO) 20 MG tablet, Take 1 tablet (20 mg total) by mouth daily., Disp: 90 tablet, Rfl: 3 meloxicam (MOBIC) 15 MG tablet, Take 1 tablet (15 mg total) by mouth daily., Disp: 90 tablet, Rfl: 3 * Maddi Borrego - 05/18/2025 3:22 PM CDT Refill request received from Patient Medication: amphetamine-dextroamphetamine XR (ADDERALL XR) 25 MG 24 hr capsule cyclobenzaprine (FLEXERIL) 10 MG tablet [[id number]] ENDED Pharmacy: [facility]/pharmacy #[id number] - [address] Last visit with CAROLINA SCHUSTER in FAMILY PRACTICE was on: 03/31/[address] [facility] Future Appointments Date Time Provider Department Center 06/28/2025 1:00 PM Carolina Schuster MD [id number] documented in this encounter Plan of Treatment Upcoming Encounters Date Type Department Care Team (Late st Contact Info) Description 06/28/2025 1:00 PM CDT Office Visit [facility] Family Medicine - [place] [address] [place] [phone] Carolina Schuster MD [address] [place] [address] documented as of this encounter Visit Diagnoses Not on filedocumented in this encounter Additional Health Concerns Assessment Noted Time PHQ-9 Depression Total Score: 15 025 9:47 AM CDT documented as of this encounter Care Teams Mill Laborer Relationship Specialty Start Date End Date Carolina Schuster MD [address] [facility] [address] [place] [id number] PCP - General FAMILY PRACTICE 03/31/25 documented as of this encounter
[2025-05-19] MEDS: IBUPROFEN 600 MG TABLET PO (06:49)
--- NOTE | 2025-05-19 07:00 | ED.URI ---
HPI - URI/Sore Throat General Chief Complaint: Upper Respiratory Infection <Gui West MD - Last Filed: 05/19/25 07:02> Stated Complaint: Fever <Gui West MD - Last Filed: 05/19/25 07:02> Time Seen by Provider: 05/19/25 07:00 <Gui West MD - Last Filed: 05/19/25 07:02> Source: patient <Gui West MD - Last Filed: 05/19/25 07:02> Mode of arrival: ambulatory <Gui West MD - Last Filed: 05/19/25 07:02> Limitations: no limitations <Gui West MD - Last Filed: 05/19/25 07:02> History of Present Illness HPI Narrative: This is a 29-year-old male with no significant past medical history that presents with a 2 day history of nasal congestion fever and sore throat muffled voice with some no chest pain no shortness of breath no audible wheezing nausea vomiting no abdominal pain or no diarrhea constipation. <Gui West MD - Last Filed: 05/19/25 07:02> MD elicited complaint: fever, sore throat and nasal congestion <Gui West MD - Last Filed: 05/19/25 07:02> Onset (ago): day(s) <Gui West MD - Last Filed: 05/19/25 07:02> Consistency: constant <Gui West MD - Last Filed: 05/19/25 07:02> Severity: moderate <Gui West MD - Last Filed: 05/19/25 07:02> Description of mucous: clear <Gui West MD - Last Filed: 05/19/25 07:02> Related Data Allergies/Adverse Reactions: Allergies Allergy/AdvReac Type Severity Reaction Status Date / Time Sulfa (Sulfonamide Allergy Severe Swelling Verified 04/17/25 14:49 Antibiotics) of Lip/Tongue/Throat <MD Kennedy Alberts Last Filed: 05/19/25 07:02> Review of Systems Review of Systems: All systems reviewed & are unremarkable except as noted in HPI and below <Gui West MD - Last Filed: 05/19/25 07:02> PMFSH Past Medical History Medical History: Medical History ADHD <Gui West MD - Last Filed: 05/19/25 07:02> Surgical History Surgical History: Surgical History History of appendectomy <Gui West MD - Last Filed: 05/19/25 07:02> Social History Social History: Social History Smoking status: Current some day smoker (Vapes) Tobacco type: e-cigarettes/vaping Alcohol intake: current Drinks per week: 30 Substance use: never Lack of Transportation: No Lack of Food: Never True Current Housing: I Have Housing Concerned About Future Housing: No Difficulty Paying Gas/Electric Bills: No Difficulty Paying for Meds: No Currently Unemployed: No Education: Trade/Vocational Certificate Difficulty w/ Childcare or Family Care: No <Gui West MD - Last Filed: 05/19/25 07:02> Exam Const: General: no acute distress <Gui West MD - Last Filed: 05/19/25 07:02> Nutritional Appearance: well nourished <Gui West MD - Last Filed: 05/19/25 07:02> Orientation/consciousness: patient oriented x3 <Gui West MD - Last Filed: 05/19/25 07:02> Limitations: no limitations <Gui West MD - Last Filed: 05/19/25 07:02> HENMT: Head: normal to inspection <Gui West MD - Last Filed: 05/19/25 07:02> Ears: TM abnormal (Left tympanic membrane is erythematous and bulging.) <Joe Hendricks MD - Last Filed: 05/19/25 07:40> Other: Throat erythematous <Gui West MD - Last Filed: 05/19/25 07:02> Eyes: Conjunctivae: conjunctivae normal <Gui West MD - Last Filed: 05/19/25 07:02> Neck: Neck: normal visual inspection <Gui West MD - Last Filed: 05/19/25 07:02> Chest: Chest palpation & inspection: normal inspection of the chest <Gui West MD - Last Filed: 05/19/25 07:02> Resp: Effort & Inspection: normal respiratory effort <MD Kennedy Alberts Last Filed: 05/19/25 07:02> Auscultation: clear to auscultation bilaterally <Gui West MD - Last Filed: 05/19/25 07:02> Cardio: Rate: regular rate <MD Kennedy Alberts Last Filed: 05/19/25 07:02> Rhythm: regular rhythm <MD Kennedy Alberts Last Filed: 05/19/25 07:02> GI: GI Palp: Yes Soft to palpation <MD Kennedy Alberts Last Filed: 05/19/25 07:02> Auscultation: normal bowel sounds <MD Kennedy Alberts Last Filed: 05/19/25 07:02> Skin: General skin exam: normal color <MD Kennedy Alberts Last Filed: 05/19/25 07:02> Rashes: no rashes <Gui West MD - Last Filed: 05/19/25 07:02> Wounds: no wounds <Gui West MD - Last Filed: 05/19/25 07:02> Course Course Emergency Course: patient received Motrin p.o., and COVID influenza RSV and strep performed <Gui West MD - Last Filed: 05/19/25 07:02> patient received Motrin p.o., Left otitis media upper respiratory tract infection- tested negative for RSV /influenza / COVID and strep. <Joe Hendricks MD - Last Filed: 05/19/25 07:40> Vital Signs Vital signs: Vital Signs Pulse Oximetry 99 05/19/25 06:40 Oxygen Delivery Room Air 05/19/25 06:40 Temperature 37.6 C 05/19/25 06:43 Pulse Rate 100 05/19/25 06:43 Respiratory Rate 15 05/19/25 06:43 Blood Pressure 121/78 05/19/25 06:43 Pulse Oximetry 98 05/19/25 06:43 Oxygen Delivery Room Air 05/19/25 06:43 <Gui West MD - Last Filed: 05/19/25 07:02> Vital Signs Pulse Oximetry 99 05/19/25 06:40 Oxygen Delivery Room Air 05/19/25 06:40 Temperature 37.6 C 05/19/25 06:43 Pulse Rate 100 05/19/25 06:43 Respiratory Rate 15 05/19/25 06:43 Blood Pressure 121/78 05/19/25 06:43 Pulse Oximetry 98 05/19/25 06:43 Oxygen Delivery Room Air 05/19/25 06:43 <Joe Hendricks MD - Last Filed: 05/19/25 07:40> MDM - URI/Sore Throat MDM Narrative Medical decision making narrative: Upper respiratory tract infection otitis media <Joe Hendricks MD - Last Filed: 05/19/25 07:40> Differential Diagnosis Differential diagnosis: Likely sinusitis and bronchitis <Joe Hendricks MD - Last Filed: 05/19/25 07:40> Medical Records Attestation: I reviewed the patient's medical records. <Joe Hendricks MD - Last Filed: 05/19/25 07:40> Lab Data Attestation: I reviewed the patient's lab results. <Joe Hendricks MD - Last Filed: 05/19/25 07:40> Labs: Lab Results 05/19/25 Range/Units 06:45 Influenza A (RT-PCR) Negative (Negative) Influenza B (RT-PCR) Negative (Negative) RSV (RT-PCR) Negative (Negative) SARS-CoV-2 RNA (RT-PCR) Negative (Negative) Group A Strep (PCR) Not detected (Negative) <Gui West MD - Last Filed: 05/19/25 07:02> Lab Results 05/19/25 Range/Units 06:45 Influenza A (RT-PCR) Negative (Negative) Influenza B (RT-PCR) Negative (Negative) RSV (RT-PCR) Negative (Negative) SARS-CoV-2 RNA (RT-PCR) Negative (Negative) Group A Strep (PCR) Not detected (Negative) <Joe Hendricks MD - Last Filed: 05/19/25 07:40> Critical Care Time Critical Care Time Critical Care Time: No <Gui West MD - Last Filed: 05/19/25 07:02> Discharge Plan Discharge Clinical Impression: Otitis media, Upper respiratory infection <Gui West MD - Last Filed: 05/19/25 07:02> Patient Disposition: Home <Gui West MD - Last Filed: 05/19/25 07:02> Condition: Stable <Gui West MD - Last Filed: 05/19/25 07:02> Instructions: Antibiotic Form, Ear Infection (GEN) <Gui West MD - Last Filed: 05/19/25 07:02> Patient Language: Indonesian <Gui West MD - Last Filed: 05/19/25 07:02> Prescriptions: New amoxicillin-pot clavulanate 875-125 mg tablet 1 tablet PO Q12H Qty: 14 0RF No Action naproxen 500 mg tablet 500 mg PO BID Qty: 14 0RF cyclobenzaprine 10 mg tablet 10 mg PO TID Qty: 20 0RF meloxicam 15 mg tablet 15 mg PO DAILY Qty: 90 1RF pantoprazole [Protonix] 20 mg tablet,delayed release (DR/EC) 20 mg PO HS 28 Days Qty: 28 0RF ondansetron 4 mg tablet,disintegrating 4 mg PO Q8H PRN (Reason: nausea and vomiting) Qty: 10 0RF escitalopram oxalate 10 mg tablet 10 mg PO DAILY Qty: 90 1RF dextroamphetamine-amphetamine [Adderall XR] 25 mg capsule,extended release 24hr 25 mg PO DAILY Qty: 30 0RF <Gui West MD - Last Filed: 05/19/25 07:02> Follow-up/Referrals: Dafne,Carolina Cornejo MD [Primary Care Provider] - <Gui West MD - Last Filed: 05/19/25 07:02> Time of Disposition: 07:39 <Gui West MD - Last Filed: 05/19/25 07:02> 07:39 <Joe Hendricks MD - Last Filed: 05/19/25 07:40>
[2025-05-19 07:17] LABS: Strep Group A RT-PCR NOT DETECTED (Negative)
--- OUTSIDE RECORDS SUMMARY | 2025-05-19 07:19 | XMS_ITS | Clinical Summary ---
Author Organization [facility] Address [facility] [place] [address] Care Team Providers Care Glove Examiner Name Role Phone Carolina Leos MD Primary [...] (03/31/2025): Diagnosed as a child. 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 Notes intricate details of the job [...] 20 mg daily. Helped with anxiety, depression. [place] it shut the brain off. Has been [...] Type Department Care Team Description 05/18/[address] [place] [address] Carolina Leos MD Refill Request 03/31/2025 9:40 AM CDT Office Visit [address] [place] [address] Carolina Leos MD New Patient (Here to [...] Description 06/28/2025 1:00 PM CDT Office Visit [facility] Family [facility] - [place] [address] [place], [place] [phone] Carolina Leos MD [address] [place] [address] Health Maintenance Due Date Last [...] Td or Tdap) 03/31/2035 03/31/2025 PHQ-2 (Physician Stebbins) Completed 03/31/2025 HPV Vaccines Aged Out No [...] [facility] Comment: This drug testing is for medical [...] analytical performance characteristics have been determined by [facility]. It has not been cleared or approved by the FDA. This assay has been validated pursuant to the CLIA regulations and is used for clinical purposes. Healthcare Providers needing Interpretation assistance, please contact us at [phone] ( ) M-F, 8am to 10pm EST URINE SPECIMEN / Unknown 03/31/2025 10:50 AM CDT 04/01/2025 12:55 AM CDT Narrative Resulting Agency Comment Performing Organization Information: Site ID: [id number] Name: [facility] Address: [address] [place] [address] Director: Steven Pendleton Site ID: [id number] Name: [facility] Address: [address] [facility] [place] [address] Director: Unique Estrada MD us Carolina Leos MD URINE ORDERABLES Final R esult [facility] [place] [address] [place] [address] [facility] [address] [place] [address], from Last 3 Months Insurance [facility] Care Teams Glove Examiner Relationship Specialty Start Date End Date Carolina Leos MD [address] [place] [id number] PCP - General FAMILY PRACTICE 03/31/25
--- OUTSIDE RECORDS SUMMARY | 2025-05-19 07:19 | XMS_ITS | Encounter Summary ---
Author Organization [facility] Address [facility] [place] [address] Care Team Providers Care Funeral Arrangement Director Name Role Phone Carolina Schuster MD Primary Care Provider + Reason for Visit * Reason Onset Date Comments Refill Request 05/18/2025 Encounter Details Date Type Department Care Team (Late st Contact Info) Description 05/18/2025 Telephone [facility] Family [facility] [address] [facility] [address] [place] [address] Carolina Schuster MD [address] [place] [address] Refill Request Social History Tobacco Use [...] in FAMILY PRACTICE was on: 03/31/2025 in [facility] Next visit with CAROLINA SCHUSTER in FAMILY PRACTICE is on: 06/28/2025 in [facility] Last fill: 03/31/25 CSA and UDS are [...] hr capsule cyclobenzaprine (FLEXERIL) 10 MG tablet [[id number]] ENDED Pharmacy: [facility]/pharmacy #[id number] - [address] Last visit with CAROLINA SCHUSTER in FAMILY PRACTICE was on: 03/31/2025 in [facility] Future Appointments Date Time Provider Department Center 06/28/2025 1:00 PM Carolina Schuster MD [id number] documented in this encounter Plan of Treatment Upcoming Encounters Date Type Department Care Team (Late st Contact Info) Description 06/28/2025 1:00 PM CDT Office Visit [facility] Family Medicine - [place] [address] [place] [phone] Carolina Schuster MD [address] [place] [address] documented as of this encounter Visit Diagnoses Not on filedocumented in this encounter Additional Health Concerns Assessment Noted Time PHQ-9 Depression Total Score: 15 025 9:47 AM CDT documented as of this encounter Care Teams Funeral Arrangement Director Relationship Specialty Start Date End Date Carolina Schuster MD [address] [facility] [address] [place] [address] PCP - General FAMILY PRACTICE 03/31/25 documented as of this encounter
[2025-05-19 07:29] LABS: Influenza A QL RT-PCR Negative (Negative); Influenza B QL RT-PCR Negative (Negative); RSV RNA, RT-PCR. Negative (Negative); SARS-CoV-2 RNA PCR Negative (Negative)
[2025-05-19 07:45] VITALS: BP 108/81; PULSE 91; RESP 16; TEMP 36.8; O2SAT 99
== END 2025-05-19 07:45 | disposition home or self-care (01) ==
PROVIDERS: Emergency Medicine; Emergency Provider Internal Medicine Critical Care Medicine; PCP Student in an Organized Health Care Education/Training Program
DX: H66.90 Otitis media, unspecified, unspecified ear (principal); J06.9 Acute upper respiratory infection, unspecified; F17.290 Nicotine dependence, other tobacco product, uncomplicated; Z20.822 Contact with and (suspected) exposure to COVID-19
CPT/HCPCS: 87637; 87651; 99283; A9270

== ENCOUNTER 2025-10-01 08:05 | Emergency (ER) | payer SELFPAY ==
[2025-10-01] VITALS (15 sets, daily range): BP systolic 117–128; BP diastolic 69–83; PULSE 72–98; RESP 17–18; TEMP 36.4; O2SAT 96–100
--- NOTE | ~2025-10-01 | CT_ITS ---
EXAMINATION: CT abdomen pelvis w con DATE: 10/01/2025 09:26 INDICATION: Abdominal pain TECHNIQUE: Computed tomography (CT) of the abdomen and pelvis was performed with 100 mL Omnipaque-350 intravenous contrast. Automated exposure control and iterative reconstruction technique were employed. The dose-length product was 633.77 mGy-cm. COMPARISON: None FINDINGS: Lung bases are clear. Heart size is normal. No pericardial or pleural effusion. Focal hepatic steatosis at the ligamentum teres. Gallbladder, spleen, pancreas, bilateral adrenal glands and kidneys are normal. Postoperative change of prior appendectomy with surgical clips at the tip the cecum. Bowels are otherwise unremarkable with no abnormal wall thickening or obstruction. Bladder is and prostate are unremarkable. No free intraperitoneal gas or fluid. No pathologically enlarged abdominal or pelvic lymphadenopathy. Bilateral hypoplastic riblets at L1. Minimal to mild scattered degenerative skeletal changes in the spine and pelvis. IMPRESSION: 1. No acute intra-abdominal/pelvic process. Reviewed, dictated and finalized at location A. [facility]
--- OUTSIDE RECORDS SUMMARY | 2025-10-01 08:17 | XMS_ITS | Clinical Summary ---
Author Organization [facility] Address [address] [place] [address] Care Team Providers Care Ethylbenzene Cracking Supervisor Name Role Phone Carolina Leos MD Primary Care Provider + Allergies Active Allergy Reactions Criticality Noted Date Comments Sulfa Antibiotics Itching,Nausea and Vomiting 1 11/29/1992 Medications meloxicam (MOBIC) 15 MG tabletIndicatio ns:Acute bilateral low back pain without sciatica Take 1 tablet (15 mg total) by mouth daily. 90 tablet 3 03/31/2025 6 Active amphetamine-dex troamphetamine XR (ADDERALL XR) 25 MG 24 hr capsuleIndicati ons:Adult ADHD Take 1 capsule (25 mg total) by mouth every morning. 30 capsule 05/20/2025 Active buPROPion XL (WELLBUTRIN XL) 150 MG 24 hr tabletIndicatio ns:Anxiety and depression Take 1 tablet (150 mg total) by mouth daily. 90 tablet 3 06/28/2025 6 Active Active Problems Problem Noted Date Diagnosed Date Adult ADHD 03/31/2025 Overview (06/28/2025): Diagnosed as a child. 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 Notes intricate details of the job are difficult due to short attention span. Previously was switching jobs every 6 months. Concerta caused zombie experience. Ritalin caused hives. Vyvanse did not work. Adderall has worked well for him. Noted improved irritability with medication as well. - The patient's concentration has improved with Adderall XR 25 mg daily. - He administers it every other day due to job-related heat exhaustion and associated muscle cramping. - He reports experiencing fatigue on the days he takes Adderall, which he attributes to his occupational demands. - He has transitioned away from consuming energy drinks to coffee. Assessment & Plan (03/31/2025 12:36 PM CDT): Completed UDS and contract. Trial adderall XR 25 mg daily. Anxiety and depression 03/31/2025 Overview (06/28/2025): - His depressive symptoms and irritability have shown improvement with Lexapro (escitalopram). - He reports decreased activity levels and a lack of motivation. - He initially started on 10 mg, which was subsequently increased to 20 mg, since 10 mg did not seem to have any effect - He has discontinued alcohol and energy drinks, and he occasionally consumes soda. Assessment & Plan (03/31/2025 12:37 PM CDT): [...] need to consider naltrexone in the future. Immunizations Immunization Administration Dates Next Due Influenza [...] Date Smoking Tobacco: Every Day Cigarettes 0.5 19.9 Started: 2005 Passive Smoke Exposure: Past Smokeless Tobacco: Never Tobacco Cessation:Ready to Q uit: No; Counseling Given: Yes Alcohol Use Standard Drinks/Week Comments Yes 40 (1 standard drink = 0.6 oz pu re alcohol) socially PHQ-2 Answer Date Recorded Patient Health Questionnaire-2 Score 4 06/28/2025 Sex and Gender Information Value Date Recorded Sex Assigned at Not on file Legal Sex Male 12:27 PM CDT Gender Identity Not on file Sexual Orientation Not on file Last Filed Vital Signs Vital Sign Reading Time Taken Comments Blood Pressure 123/75 06/28/2025 1:04 PM CDT Pulse 79 06/28/2025 1:04 PM CDT Temperature 36.5 C (97.7 F) 06/28/2025 1:04 PM CDT Respiratory Rate - - Oxygen Saturation 97% 06/28/2025 1:04 PM CDT Inhaled Oxygen Concentration - - Weight 99.3 kg (219 lb) 06/28/2025 1:04 PM CDT Height 190.5 cm (6' 3) 06/28/2025 1:04 PM CDT Body Mass Index 27.37 06/28/2025 1:04 PM CDT Plan of Treatment Health Maintenance Due Date Last Done Comments Hepatitis C 2011 Hepatitis B Vaccines (1 of 3 - 19+ 3-dose series) 2012 Pneumococcal Vaccine: Pediat rics (0 to 5 Years) and At-Risk Patients (6 to 49 Years) (1 of 2 - PCV) 2012 HPV Vaccines (1 - 3-dose SCD M series) 2020 COVID-19 Vaccine ( - 2024-2 6 season) 2025 Influenza Adult (#1) 2025 08/21/2023 Annual Physical 03/31/2026 03/31/2025 DTaP, Tdap and Td Vaccines ( 2 - Td or Tdap) 03/31/2035 03/31/2025 PHQ-2 (Physician Dennis) Completed 06/28/2025 Hepatitis A Vaccines Aged Out No long er eligible based on patient's age to complete this topic Meningococcal B Vaccine Aged Out No l onger eligible based on patient's age to complete this topic Meningococcal Vaccine Aged Out No tay kristine eligible based on patient's age to complete this topic RSV Immunizations Under 20 Months Aged Out No longer eligible based on patient's age to complete this topic Care Teams Ethylbenzene Cracking Supervisor Relationship Specialty Start Date End Date Carolina Leos MD [address] [address] PCP - General FAMILY PRACTICE 03/31/25
--- OUTSIDE RECORDS SUMMARY | 2025-10-01 08:17 | XMS_ITS | Patient Health Record ---
Author Organization [facility] Address [facility] [facility] [address] [place] [address] Care Team Providers Care Hydraulic Specialist Name Role Phone Yonas Aguirre Unavailable [phone] Reason For Referral No Information Medications Medication SIG (Take, Route, Fr equency, Duration) Notes Start Date End Date Status predniSONE 10 MG Tablet Oral Active Social History Social History Additional Details Category Social Info Options Details Migrated Social History Migrated Social History Alcohol Intake: 09/20/2020,Tobacco Years: Current every day smoker 09/20/2020 Plan Of Treatment No Information Insurance Providers Payer Name Payer Address Payer Phone Subscriber Number Group Number Insured Name Patient Relationship to Insured Coverage Start Date Coverage End Date [facility] [address] [place] [address] [id number] MANI PAPPAS Child - Insured has Financial Responsibility
--- NOTE | 2025-10-01 08:37 | ED_ITS ---
HPI - Nausea/Vomiting/Diarrhea General Chief complaint: Nausea/Vomiting/Diarrhea Stated complaint: vomiting and diarrhea Time Seen by Provider: 10/01/25 08:26 Source: patient and family Mode of arrival: ambulatory Limitations: no limitations History of Present Illness HPI Narrative: Patient is a 30-year-old male with recurrent nausea vomiting and diarrhea. He has been sick for 4 days. He was slowly getting better over the last 2 days but proceeded to go back to the same symptoms from day 1 of nausea vomiting and diarrhea. No bleeding or blood. He ate tacos last night which stimulated this return of the symptoms. He has been having GERD. He is having abdominal pain in the upper abdomen across the abdomen. patient was in the emergency room with conservative treatment of a gastroenteritis 4 days ago. MD elicited complaint: nausea, vomiting, diarrhea and abdominal pain Pertinent past history: other ( GERD) Onset (ago): day(s) (4) Description of vomiting: food contents and watery Description of diarrhea: watery and black tarry ( he took Pepto-Bismol and then had some black tarry stool thereafter but not otherwise) Associated nausea: Yes Associated abdominal pain: Yes Location of pain: epigastric, LUQ and RUQ Radiation: does not radiate Pain consistency: intermittent Severity: mild Pain scale (0-10): 3 Quality: sharp Exacerbating factors: eating Relieving factors: none Context: other ( patient having abdominal pain with nausea vomiting and diarrhea over the past 4 days) Associated symptoms: malaise, nausea/vomiting and other ( Patient also had a eye twitching this morning and blurry vision which may be related to a dehydration situation some recurrent diarrhea) Treatment prior to arrival: other OTC medicine Related Data Allergies Allergy/AdvReac Type Severity Reaction Status Date / Time Sulfa (Sulfonamide Allergy Severe Swelling Verified 10/01/25 08:26 Antibiotics) of Lip/Tongue/Throat Review of Systems 2 Review of Systems: All systems reviewed & are unremarkable except as noted in HPI and below Constitutional: Constitutional: Reports no additional constitutional complaints Eyes: Eyes: Reports no additional eye complaints ENT: Reports system reviewed and no additional complaints, except as documented Cardiovascular: Cardiovascular: Reports no additional cardiovascular complaints Respiratory: Respiratory: Reports no additional respiratory complaints Gastrointestinal: Gastrointestinal: Reports no additional gastrointestinal complaints Genitourinary: Genitourinary: Reports no additional male genitourinary complaints Musculoskeletal: Musculoskeletal: Reports no additional musculoskeletal complaints Integumentary/Breasts: Skin/Breast: Reports system reviewed and no additional complaints, except as docu Neurologic: Reports system reviewed and no additional complaints, except as documented Psychiatric: Psychiatric: Reports no additional psychiatric complaints Endocrine: Endocrine: Reports no additional endocrine complaints Hematologic/Lymphatic: Hematologic/Lymphatic: Reports no additional hematologic/lymphatic complaints Allergic/Immunologic: Allergic/Immunologic: Reports no additional allergic/immunologic complaints PMFSH Past Medical History Medical History ADHD Surgical History Surgical History History of appendectomy Social History Social History Smoking status: Current some day smoker (Vapes) Tobacco type: e-cigarettes/vaping Alcohol intake: current Drinks per week: 30 Substance use: never Lack of Transportation: No Lack of Food: Never True Current Housing: I Have Housing Concerned About Future Housing: No Difficulty Paying Gas/Electric Bills: No Difficulty Paying for Meds: No Currently Unemployed: No Education: Trade/Vocational Certificate Difficulty w/ Childcare or Family Care: No Exam 2 Const: General: healthy appearing Nutritional Appearance: well nourished Orientation/consciousness: patient oriented x3 HENMT: Ears: external ears normal and TM's normal bilaterally Face and sinus: normal facial exam Throat: posterior oropharynx normal Eyes: Conjunctivae: conjunctivae normal Cornea: corneas normal Pupils: E qual, round and reactive pupils present EOM: EOMs intact bilaterally D irect Ophthalmoscopy: no photophobia Neck: Neck: normal visual inspection, no lymphadenopathy and no meningeal signs Chest: Chest palpation & inspection: normal inspection of the chest Resp: Effort & Inspection: normal respiratory effort and not labored A uscultation: clear to auscultation bilaterally and no crackles Cardio: Rate: regular rate Rhythm: regular rhythm Heart sounds: no murmurs GI: Inspection: non-distended GI Palp: Yes Soft to palpation, Yes Tenderness to palpation present (GI) ( upper abdomen epigastric area more so than the lateral aspects), No Guarding due to palpation present (GI), No Rigid due to palpation, No Hernia present, No Palpable mass present and No Rebound tenderness present Auscultation: normal bowel sounds Back/Spine/Pelvis: Back: no CVA tenderness Skin: General skin exam: normal color Rashes: no rashes Wounds: no wounds Neuro: General: patient oriented x3, moves all extremities and no meningeal signs Other: fast exam was negative, NIH is 0, GCS is 15 Extrem: General: normal to inspection, no clubbing, cyanosis or edema and no pedal edema Psych: Mental Status: mental status grossly normal Affect: normal affect Attitude: cooperative Course Vital Signs Vital signs: Vital Signs Temperature 36.4 C 10/01/25 08:05 Pulse Rate 72 10/01/25 08:05 Respiratory Rate 18 10/01/25 08:05 Blood Pressure 126/82 10/01/25 08:05 Pulse Oximetry 100 10/01/25 08:05 Oxygen Delivery Room Air 10/01/25 08:05 Temperature 36.4 C 10/01/25 08:05 Pulse Rate 72 10/01/25 08:05 Respiratory Rate 18 10/01/25 08:05 Blood Pressure 126/82 10/01/25 08:05 Pulse Oximetry 100 10/01/25 08:05 Oxygen Delivery Room Air 10/01/25 08:05 MDM - Nausea/Vomiting/Diarrhea MDM Narrative Medical decision making narrative: patient is a 30-year-old male with nausea vomiting and diarrhea with abdominal pain for the past 4 days. He was in the emergency room 4 days ago and was conservatively treated. We will go ahead and express further workup at this time with CT scan and labs. patient will monitor the eye blurry vision which has resolved at this time and seek care right away if it returns. Lab Data Attestation: I reviewed the patient's lab results. 10/01/25 08:43 10/01/25 08:43 Labs: Lab Results 10/01/25 10/01/25 Range/Units 08:43 08:44 WBC 7.3 (4.8-10.8) K/mm3 RBC 4.82 (4.70-6.10) M/mm3 Hgb 14.4 (14.0-18.0) g/dL Hct 40.4 (40.0-54.0) % MCV 83.8 (78.0-102.0) fL MCH 29.9 (27.0-31.0) pg MCHC 35.6 (32-36) g/dL RDW 12.1 (11.6-14.4) % Plt Count 250 (150-420) K/mm3 MPV 9.7 (8.7-11.0) fl Immature Gran % (Auto) 0.4 H (0.0-0.0) % Neut % (Auto) 59.2 (50.0-70.0) % Lymph % (Auto) 22.7 (18.0-42.0) % Dawes % (Auto) 14.8 H (2.0-11.0) % Eos % (Auto) 2.2 (1.0-6.0) % Baso % (Auto) 0.7 (0.0-1.0) % Lymph # (Auto) 1.66 (1.10-4.50) K/mm3 Dawes # (Auto) 1.08 H (0.10-0.90) K/mm3 Eos # (Auto) 0.16 (0.02-0.50) K/mm3 Baso # (Auto) 0.05 (0.00-0.10) K/mm3 Abs Immat Gran (auto) 0.03 H (0.00-0.00) K/mm3 Absolute Neuts (auto) 4.32 (1.70-7.20) K/mm3 Absolute Nucleated RBC 0.00 (0.00-0.00) K/mm3 Nucleated RBC % 0.0 (0-0.0) % Sodium 143 (137-145) mmol/L Potassium 3.5 (3.4-5.0) mmol/L Chloride 103 (98-107) mmol/L Carbon Dioxide 28 (22-30) mmol/L Anion Gap 12 (4-12) mmol/L BUN 17 (9-20) mg/dL Creatinine 1.14 (0.7-1.3) mg/dL Estim Creat Clear Calc 99 ml/min Estimated GFR > 60 (59 - ) Glucose 101 (65-110) mg/dL Calculated Osmolality 297 H (285-295) mOsm/kg Lactic Acid 1.0 (0.7-2.0) mmol/L Calcium 8.8 (8.4-10.2) mg/dL Magnesium 2.2 (1.6-2.3) mg/dL Total Bilirubin 1.4 H (0.2-1.3) mg/dL AST 31 (17-59) U/L ALT 26 (6-50) U/L Alkaline Phosphatase 65 (38-126) U/L Total Protein 7.3 (6.3-8.2) g/dL Albumin 4.6 (3.5-5.1) g/dL Lipase 115 (23-300) U/L Imaging Data Attestation: I personally reviewed and interpreted this imaging study as follows: Radiologist's impression: CT scan of the abdomen and pelvis with contrast is negative for acute process Discharge Plan Discharge Clinical Impression: Viral gastroenteritis, GERD (gastroesophageal reflux disease) Patient Disposition: Home Condition: Stable Instructions: Gastroenteritis (ED), GERD (Gastroesophageal Reflux Disease) (DC) Additional Instructions: please follow-up with the primary doctor in the next week. Please follow a bland diet for the next couple of days. You may advance as tolerated. Please discuss with your primary doctor about further workup and treatment for acid reflux. Patient Language: [place] Prescriptions: New ondansetron 4 mg tablet,disintegrating 4 mg PO Q6H PRN (Reason: nausea and vomiting) Qty: 30 0RF No Action naproxen 500 mg tablet 500 mg PO BID Qty: 14 0RF cyclobenzaprine 10 mg tablet 10 mg PO TID Qty: 20 0RF amoxicillin-pot clavulanate 875-125 mg tablet 1 tablet PO Q12H Qty: 14 0RF meloxicam 15 mg tablet 15 mg PO DAILY Qty: 90 1RF pantoprazole [Protonix] 20 mg tablet,delayed release (DR/EC) 20 mg PO HS 28 Days Qty: 28 0RF ondansetron 4 mg tablet,disintegrating 4 mg PO Q8H PRN (Reason: nausea and vomiting) Qty: 10 0RF escitalopram oxalate 10 mg tablet 10 mg PO DAILY Qty: 90 1RF dextroamphetamine-amphetamine [Adderall XR] 25 mg capsule,extended release 24hr 25 mg PO DAILY Qty: 30 0RF Follow-up/Referrals: Wilton Vick MD [Primary Care Provider, Internal Medicine] Stand Alone Forms: Work/School Release IP Time of Disposition: 09:58
--- OUTSIDE RECORDS SUMMARY | 2025-10-01 08:44 | XMS_ITS | Clinical Summary ---
Author Organization [facility] Address [address] [place] [address] Care Team Providers Care Pulp Tester Name Role Phone Carolina Leos MD Primary [...] (06/28/2025): Diagnosed as a child. 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 Notes intricate details of the job are [...] Td or Tdap) 03/31/2035 03/31/2025 PHQ-2 (Physician [place]) Completed 06/28/2025 Hepatitis A Vaccines Aged Out [...] age to complete this topic Care Teams Pulp Tester Relationship Specialty Start Date End Date Carolina Leos MD [id number] [address] PCP - General FAMILY PRACTICE 03/31/25
[2025-10-01 08:47] LABS: Hematocrit 40.4 % (40.0-54.0); Hemoglobin 14.4 g/dL (14.0-18.0); Immature Granulocyte Percent A 0.4 % (0.0-0.0); Lymphocytes Absolute Auto 1.66 K/mm3 (1.10-4.50); Mean Corpuscular HGB Conc 35.6 g/dL (32-36); Mean Corpuscular Hemoglobin 29.9 pg (27.0-31.0); Mean Corpuscular Volume 83.8 fL (78.0-102.0); Nucleated Red Blood Cells Absolute Auto 0.00 K/mm3 (0.00-0.00); Nucleated Red Blood Cells Perc 0.0 % (0-0.0); Platelet Count Result 250 K/mm3 (150-420); Red Blood Count 4.82 M/mm3 (4.70-6.10); White Blood Count 7.3 K/mm3 (4.8-10.8)
[2025-10-01 08:59] LABS: Alanine Aminotransferase 26 U/L (6-50); Albumin Level 4.6 g/dL (3.5-5.1); Alkaline Phosphatase 65 U/L (38-126); Anion Gap 12 mmol/L (4-12); Aspartate Amino Transferase 31 U/L (17-59); Blood Urea Nitrogen 17 mg/dL (9-20); Calcium 8.8 mg/dL (8.4-10.2); Carbon Dioxide 28 mmol/L (22-30); Chloride 103 mmol/L (98-107); Estimated CRCL calculation 99 ml/min; Estimated Glomerular Filt Rate > 60; Glucose 101 mg/dL (65-110); Lipase 115 U/L (23-300); Magnesium 2.2 mg/dL (1.6-2.3); Osmolality Calculated 297 mOsm/kg (285-295); Potassium 3.5 mmol/L (3.4-5.0); Sodium 143 mmol/L (137-145); Total Protein 7.3 g/dL (6.3-8.2)
[2025-10-01] MEDS: ONDANSETRON INJ 4 MG/2 ML VIAL IV PUSH (09:05)
[2025-10-01] MEDS: SODIUM CHLORIDE 0.9% IV 1,000 ML 999 ML IV CONT (09:05)
[2025-10-05 13:52] LABS: Bilirubin,Total 0.3 mg/dL (0.2-1.3)
== END 2025-10-01 10:17 | disposition home or self-care (01) ==
PROVIDERS: Emergency Provider Emergency Medicine; PCP Family Medicine
DX: A08.4 Viral intestinal infection, unspecified (principal); K21.9 Gastro-esophageal reflux disease without esophagitis; F17.290 Nicotine dependence, other tobacco product, uncomplicated
CPT/HCPCS: 36415; 74177; 80053; 83605; 83690; 83735; 85025; 96361; 96374; 99284; J2405; J7030; Q9967